=== PATIENT | male | born 1965 | race Caucasian/White ===

== ENCOUNTER 2016-08-27 01:49 | Emergency (ER) | payer OTHER ==
[~2016-08-27] VITALS: Ht 185.4 cm; Wt 136.1 kg
--- NOTE | 2016-08-27 02:37 | ED AMS/SEIZURE/WEAK/DIZZY ---
History of Present Illness General Chief Complaint: General Adult Stated Complaint: BORIS TOOK ONLINE THC PILL, DRY MOUTH AND DIZZINESS Source: patient Exam Limitations: clinical condition, confusion Vital Signs & Intake/Output Vital Signs & Intake/Output Vital Signs Date Time Temp Pulse Resp B/P B/P Pulse O2 O2 Flow FiO2 Mean Ox Delivery Rate 08/27 0156 98.5 125 22 130/93 94 Room Air Allergies Coded Allergies: tramadol (Severe, ANAPHYLAXIS 12/30/15) Triage Note: PT BIBAliyah C/O DRY MOUTH, DIZZINESS, AND NAUSEA AFTER TAKING A THC PILL PT BOUGHT ONLINE. PT STATES HE HAS HX OF PROSTATE CANCER, RECIEVED FREE PILLS FROM A FRIEND THAT HE BELIEVED WOULD HELP HIS CANCER "GO AWAY". PT ARRIVES EXTREMELY ANXIOUS, TREMULOUS, AND ACTIVELY VOMITING. AT BEDSIDE FOR PT EVAL. Triage Nurses Notes Reviewed? yes HPI: Patient presents for evaluation of dizziness and nausea after taking an online "cannabis" medication that a friend sent him. Patient states he took one capsule at about 5:00 this evening. He then had an onset of dizziness described as a spinning sensation along with nausea and a dry mouth. History is somewhat limited as the patient admits he feels a little confused. Past History Travel History Traveled to [place] past 21 day No Medical History Any Pertinent Medical History? see below for history Cardiovascular: hypertension, hyperlipidemia Psychiatric: anxiety Cancer(s): prostate cancer Tetanus Vaccine: 06/05/11 Surgical History Surgical History: prostatectomy (July) Psychosocial History What is your primary language [place] Tobacco Use: Current Not Daily Family History Hx Contributory? No Review of Systems Review of Systems Constitutional: Reports: no symptoms. EENTM: Reports: no symptoms. Respiratory: Reports: no symptoms. Cardiovascular: Reports: no symptoms. GI: Reports: no symptoms. Genitourinary: Reports: no symptoms. Musculoskeletal: Reports: no symptoms. Skin: Reports: no symptoms. Neurological/Psychological: Reports: no symptoms. Hematologic/Endocrine: Reports: no symptoms. Immunologic/Allergic: Reports: no symptoms. All Other Systems: Reviewed and Negative Physical Exam Physical Exam General Appearance: SEE BELOW Comments: Gen.: Well-nourished, well-developed, no acute respiratory distress. Head: Normocephalic, atraumatic. Eyes: Normal inspection bilaterally, PERRLA, EOMI, no nystagmus Ears: Normal inspection bilaterally Nose: Normal inspection Throat/mouth : Tacky mucosa Neck: Supple, full range of motion, no goiter Heart: Rapid Regular rate and rhythm, no murmurs rubs or gallops Lungs: Clear to auscultation bilaterally with normal air entry Chest: Nontender Back: Normal range of motion Abdomen: Soft, nontender, nondistended, normal bowel sounds Extremities: Normal range of motion grossly, equal radial pulses, no cyanosis clubbing or edema Neurologic: Cranial nerves grossly intact, speech is clear Skin: warm and dry, normal color Psychiatric: Calm, cooperative, no apparent delusions or hallucinations Core Measures ACS in differential dx? No CVA/TIA Diagnosis: No Severe Sepsis Present: No Septic Shock Present: No Progress Differential Diagnosis: thc INTOXICATION Plan of Care: Orders Procedure Date/time Status URINE DRUG SCREEN FOR ER ONLY 08/28 235 Active TSH REFLEX 08/28 235 Complete ETHANOL 08/28 235 Complete COMPREHENSIVE METABOLIC PANEL 08/28 235 Complete CBC WITHOUT DIFFERENTIAL 08/28 235 Complete EKG 08/28 235 Active Current Medications Sig/Carlos Start time Last Medication Dose Stop Time Status Admin Sodium Chloride 1,000 ML BOLUS ONE 08/27 514 AC 08/27 (Normal Saline 0.9%) 08/27 613 0519 Laboratory Tests 08/27/16 0240: Anion Gap 15, Estimated GFR > 60, BUN/Creatinine Ratio 22.5, Glucose 137 H, Calcium 9.6, Total Bilirubin 0.4, AST 26, ALT 45, Alkaline Phosphatase 80, Total Protein 7.2, Albumin 4.3, Globulin 2.9, Albumin/Globulin Ratio 1.5, TSH &T3 & Free T4 Intrp 1.180, CBC w Diff NO MAN DIFF REQ, RBC 4.78, MCV 85.7, MCH 28.9, RDW 14.6 H, MPV 8.3, Gran % 42.4, Lymphocytes % 35.1, Monocytes % 9.4 H, Eosinophils % 12.3 H, Basophils % 0.8, Absolute Granulocytes 4.0, Absolute Lymphocytes 3.3, Absolute Monocytes 0.9 H, Absolute Eosinophils 1.2, Absolute Basophils 0.1, PUBS MCHC 33.8, Serum Alcohol < 10.0 Initial ED EKG: Sinus tachycardia with a ventricular rate of 118 Comments: 08/27/2016 4:35:10 AM Rishabh heart rate is improving and he is more alert and focused. 08/27/2016 5:47:06 AM Yarelis heart rate is now in the mid 90s. He continues to improve clinically. Although he has been unable to provide a urine specimen here in the emergency department he feels comfortable returning home. He states since his prostatectomy he has been dribbling urine. He does void spontaneously as well. He feels comfortable going home and will return to the emergency department if he is unable to void. Departure Departure Disposition: HOME OR SELF CARE Condition: Stable Clinical Impression Primary Impression: Intoxication with cannabis Qualifiers: Complication of substance-induced condition: with delirium Qualified Code: F12.921 - Cannabis use, unspecified with intoxication delirium Referrals: CED ANAND,LUIZ Chavez (PCP/Family) Additional Instructions: Take only medications prescribed by your doctor and avoid [id number] or supplements. Follow-up with your primary care physician on Monday for reevaluation. Return if any concerns or sudden worsening. Departure Forms: Customer Survey General Discharge Information
[2016-08-27 02:48] LABS: ABSOLUTE BASOPHIL COUNT 0.1 /CUMM (0.0-0.2); ABSOLUTE EOSINOPHIL COUNT 1.2 /CUMM (0.0-0.7); ABSOLUTE LYMPH COUNT 3.3 /CUMM (1.2-3.4); ABSOLUTE MONOCYTE COUNT 0.9 /CUMM (0.10-0.60); BASOPHIL % 0.8 % (0.0-2.0); EOSINOPHIL % 12.3 % (0-5); GRANULOCYTE % 42.4 % (42.2-75.2); HEMATOCRIT 40.9 % (42-52); MEAN CORPUSCULAR HGB 28.9 PG (27.0-31.0); MEAN CORPUSCULAR HGB CONC 33.8 G/DL (33.0-37.0); MEAN CORPUSCULAR VOLUME 85.7 FL (80.0-94.0); MEAN PLATELET VOLUME 8.3 FL (7.4-10.4); PLATELET COUNT 264 /CUMM (130-400); RBC DISTRIBUTION WIDTH 14.6 % (11.5-14.5); RED BLOOD CELL CT 4.78 /CUMM (4.70-6.10); WHITE BLOOD CELL COUNT 9.5 /CUMM (4.8-10.8)
[2016-08-27 06:17] VITALS: BP 115/62
== END 2016-08-27 06:18 ==
LOC: ERH 01:49
PROVIDERS: Emergency Medicine
DX: F12.129 Cannabis abuse with intoxication, unspecified (principal)
CPT/HCPCS: 80307; 93005; 93010; 96361; 96372; 96374; G0480; J2405